=== PATIENT | female | born 1940 | race Caucasian/White ===

== ENCOUNTER 2023-02-13 14:15 | Outpatient (CLI) | payer MEDICARE, OTHER ==
[2023-02-13 20:16] LABS: BASOPHILS % (AUTO) 0.5 %; EOSINOPHILS # (AUTO) 0.2 10^3/uL (0.0-0.7); EOSINOPHILS % (AUTO) 2.7 %; HCT - HEMATOCRIT 35.7 % (37.0-47.0); HGB - HEMOGLOBIN 10.9 g/dL (12.0-16.0); LYMPHOCYTES # (AUTO) 1.3 10^3/uL (1.5-3.5); LYMPHOCYTES % (AUTO) 21.3 %; MEAN CORPUSCULAR HEMOGLOBIN 29.9 pg (27.0-31.0); MEAN CORPUSCULAR HGB CONC 30.5 g/dL (32.0-36.0); MEAN CORPUSCULAR VOLUME 98.1 fL (81.0-99.0); MEAN PLATELET VOLUME 11.8 fL (7.9-10.8); MONOCYTES # (AUTO) 0.4 10^3/uL (0.0-1.0); MONOCYTES % (AUTO) 6.4 %; NEUTROPHILS # (AUTO) 4.3 10^3/uL (1.5-6.6); NEUTROPHILS % (AUTO) 68.8 %; PLT - PLATELET COUNT 167 10^3/uL (130-450); RED BLOOD COUNT 3.64 10^6/uL (4.20-5.40); RED CELL DISTRIBUTION WIDTH 14.2 % (12.0-15.0); WHITE BLOOD COUNT 6.2 x10^3/uL (4.8-10.8)
[2023-02-13 20:28] LABS: CALCIUM 9.1 mg/dL (8.5-10.3); POTASSIUM 3.7 mmol/L (3.5-4.5)
== END 2023-02-13 14:16 | disposition home or self-care (01) ==
LOC: LAB.S 14:15
PROVIDERS: ATTEND Nurse Practitioner Acute Care
DX: N18.31 Chronic kidney disease, stage 3a (principal); D53.9 Nutritional anemia, unspecified
CPT/HCPCS: 36415; 80048; 85025

== ENCOUNTER 2023-03-07 13:34 | Outpatient (CLI) | payer MEDICARE, OTHER | END 2023-03-07 13:35 | disposition home or self-care (01) | LOC: DI 13:34 | PROVIDERS: ATTEND Nurse Practitioner Acute Care | DX: I42.0 Dilated cardiomyopathy (principal); R60.9 Edema, unspecified; I51.7 Cardiomegaly; I34.0 Nonrheumatic mitral (valve) insufficiency | CPT/HCPCS: 93306 ==

== ENCOUNTER 2023-03-13 13:13 | Outpatient (CLI) | payer MEDICARE, OTHER ==
--- NOTE | 2023-03-15 09:18 | Mammography Report ---
BILATERAL DIGITAL SCREENING MAMMOGRAM 3D/2D: 03/13/2023 CLINICAL: Routine screening. Comparison is made to exams dated: 08/23/2020 mammogram - [facility], 05/11/2017 [facility], and 05/31/2015 mammogram - [facility]. There are scattered areas of fibroglandular density in both breasts (category b / 25%-50% glandular t issue). No significant masses, calcifications, or other findings are seen in either breast. There has been no significant interval change. IMPRESSION: NEGATIVE There is no mammographic evidence of malignancy. A 1 year screening mammogram is recommended. Based on the Tyrer Cuzick model (a risk assessment model) the patient's lifetime risk is 1.8% and her 10 year risk is 0.0%. According to the ACR, ACS, and NCCN guidelines, an annual breast MRI exam sunita g with mammogram is recommended if the patients lifetime risk is 20% or greater. This exam was interpreted at Station ID: [id number]. NOTE: For mammograms, a report in lay terms will be sent to the patient. Approximately 15% of breast malignancies will not be visualized mammographically. In the management of a palpable breast mass, a negative mammogram must not discourage biopsy of a clinically suspicious lesion. Electronically Signed By: Carlitos Lin M.D. [facility] [place]:03/14/2023 15:12:00 ACR BI-RADS Category 1: Negative 3341F PARENCHYMAL PATTERN: (A) - The breast(s) demonstrate(s) scattered fibroglandular densities. BI-RADS CATEGORY: (1) - 1 Mammogram [id number] 1 year screening LATERALITY: (B)
== END 2023-03-13 13:14 | disposition home or self-care (01) ==
LOC: DI 13:13
PROVIDERS: ATTEND Nurse Practitioner Acute Care
DX: Z12.31 Encounter for screening mammogram for malignant neoplasm of breast (principal); R92.323 Mammographic fibroglandular density, bilateral breasts

== ENCOUNTER 2023-05-07 10:41 | Outpatient (CLI) | payer MEDICARE, OTHER ==
[2023-05-07 11:07] LABS: % IRON SATURATION 10 % (20-50); BUN - BLOOD UREA NITROGEN 26 mg/dL (6-20); CALCIUM 9.3 mg/dL (8.5-10.3); CARBON DIOXIDE - CO2 29 mmol/L (21-32); CHLORIDE 103 mmol/L (101-111); CREATININE 1.1 mg/dL (0.6-1.3); GFR - MDRD 48 (>89); GLUCOSE 126 mg/dL (74-104); IRON 41 ug/dL (50-212); POTASSIUM 3.8 mmol/L (3.5-4.5); SODIUM 136 mmol/L (135-145); TOTAL IRON BINDING CAPACITY 399 ug/dL (250-450); TRANSFERRIN 285 mg/dL (203-362)
[2023-05-07 11:28] LABS: FERRITIN 6.6 ng/mL (11.0-306.8)
== END 2023-05-07 10:42 | disposition home or self-care (01) ==
LOC: LAB 10:41
PROVIDERS: ATTEND Nurse Practitioner Acute Care
DX: D53.9 Nutritional anemia, unspecified (principal); G62.9 Polyneuropathy, unspecified
CPT/HCPCS: 36415; 80048; 82607; 82728; 82746; 83540; 84466

== ENCOUNTER 2023-05-11 12:14 | Outpatient (CLI) | payer MEDICARE, OTHER ==
[2023-05-11 12:25] LABS: BASOPHILS % (AUTO) 0.5 %; EOSINOPHILS # (AUTO) 0.4 10^3/uL (0.0-0.7); EOSINOPHILS % (AUTO) 6.3 %; HCT - HEMATOCRIT 36.9 % (37.0-47.0); HGB - HEMOGLOBIN 10.8 g/dL (12.0-16.0); LYMPHOCYTES # (AUTO) 1.6 10^3/uL (1.5-3.5); LYMPHOCYTES % (AUTO) 25.8 %; MEAN CORPUSCULAR HEMOGLOBIN 28.9 pg (27.0-31.0); MEAN CORPUSCULAR HGB CONC 29.3 g/dL (32.0-36.0); MEAN CORPUSCULAR VOLUME 98.7 fL (81.0-99.0); MEAN PLATELET VOLUME 11.4 fL (7.9-10.8); MONOCYTES # (AUTO) 0.6 10^3/uL (0.0-1.0); MONOCYTES % (AUTO) 9.1 %; NEUTROPHILS # (AUTO) 3.5 10^3/uL (1.5-6.6); NEUTROPHILS % (AUTO) 58.1 %; PLT - PLATELET COUNT 171 10^3/uL (130-450); RED BLOOD COUNT 3.74 10^6/uL (4.20-5.40); RED CELL DISTRIBUTION WIDTH 13.8 % (12.0-15.0)
== END 2023-05-11 12:15 | disposition home or self-care (01) ==
LOC: LAB 12:14
PROVIDERS: ATTEND Nurse Practitioner Acute Care
DX: D53.9 Nutritional anemia, unspecified (principal)
CPT/HCPCS: 36415; 85025

== ENCOUNTER 2023-05-21 10:19 | Outpatient (CLI) | payer MEDICARE, OTHER ==
--- NOTE | 2023-05-21 11:46 | XRAY Report ---
PROCEDURE: Foot 1-2V BL INDICATIONS: BILATERAL FOOT PAIN TECHNIQUE: 2 views of the feet were acquired. COMPARISON: None. FINDINGS: Bones: No fractures or dislocations. No suspicious bony lesions. Tiny calcaneal despite Soft tissues: No tibiotalar joint effusion. Achilles tendon appears normal. IMPRESSION: Tiny calcaneal enthesophytes. Otherwise, no significant degenerative change or acute bony abnormality. Reviewed by: Delbert Morales MD on 05/21/2023 11:45 AM PDT Approved by: Delbert Morales MD on 05/21/2023 11:45 AM PDT Station ID: [id number]
== END 2023-05-21 10:20 | disposition home or self-care (01) ==
LOC: DI 10:19
PROVIDERS: ATTEND Nurse Practitioner Acute Care
DX: M77.32 Calcaneal spur, left foot (principal); M77.31 Calcaneal spur, right foot